=== PATIENT | male | born 1975 | race Caucasian/White ===

== ENCOUNTER 2020-10-24 21:03 | Emergency (ER) | payer OTHER ==
[2020-10-25 02:56] LABS: Absolute Lymphocytes (CBC) 0.7 K/uL (0.7-4.9); Basophils % 0.1 % (0-1.3); Hematocrit 41.9 % (39.6-49.0); Lymphocytes % 5.8 % (15.3-44.8); MPV 7.4 fL (7.6-11.3); Protime INR 1.15; RBC Red Blood Cell Count 5.16 M/uL (4.33-5.43)
[2020-10-25] MEDS ORDERED: NA CHLORIDE 0.9% 250 ML ONE (03:02)
[2020-10-25] MEDS ORDERED: CEFTRIAXONE/SWI 1gm 1 GM/10 ML SYR ONE (03:02)
[2020-10-25] MEDS ORDERED: AZITHROMYCIN 500 MG INJ IVPB ONE (03:02)
[2020-10-25] MEDS ORDERED: METHYLPREDNISOLONE 125 MG INJ ONE (03:02)
[2020-10-25] MEDS ORDERED: ALBUTEROL INHALER 60 PUFF/8 GM IH ONE (03:03)
[2020-10-25 03:11] LABS: ALT/SGPT 70 U/L (12-78); AST/SGOT 60 U/L (15-37); Albumin 3.5 g/dL (3.4-5.0); Alkaline Phosphatase 34 U/L (45-117); BUN Blood Urea Nitrogen 51 mg/dL (7-18); Bicarbonate 23 mmol/L (21-32); Bilirubin Direct 0.2 mg/dL (0-0.2); Bilirubin Total 0.5 mg/dL (0.2-1.0); Glucose Level 106 mg/dL (74-106); Magnesium 2.5 mg/dL (1.8-2.4); NT PRO-BNP 315 pg/mL (<125); Potassium 4.4 mmol/L (3.5-5.1); Protein, Total 7.2 g/dL (6.4-8.2); Sodium Level 137 mmol/L (136-145); Troponin (Emerg Dept Use Only) < 0.02 ng/mL (0.0-0.045)
--- NOTE | 2020-10-25 03:32 | EDPHYS ---
Physician Documentation [facility] Name: Wero Bell Age: 45 yrs Sex: Male : 1975 Arrival Date: 10/24/2020 Time: 21:13 Bed 12 Private MD: ED Physician Manny Murcia HPI: 10/25 01:25 This 45 yrs old Male presents to ER via Ambulatory with complaints of mh7 Productive Cough, WANTS TO GET CHEST XRAY. 01:25 The patient or guardian reports cough, that is intermittent, described as moderate, mh7 with no sputum, flu symptoms, myalgias, Shortness of breath. Onset: The symptoms/episode began/occurred 2 day(s) ago. Severity of symptoms: At their worst the symptoms were moderate, last night, in the emergency department the symptoms are unchanged. Modifying factors: The symptoms are alleviated by nothing, the symptoms are aggravated by exertion. Associated signs and symptoms: Pertinent positives: Pertinent negatives: chest pain, diarrhea, ear ache, fever, nausea, rhinorrhea, sore throat, vomiting. States that he tested positive for Covid 1 week ago.. Historical: - Allergies: 10/24 22:04 No Known Allergies; ca1 - Home Meds: 22:04 None [Active]; ca1 - PMHx: 22:04 Sleep apnea; Hypertensive disorder; ca1 - Immunization history:: Client reports having NOT received the Covid vaccine. - Social history:: Smoking status: Patient denies any tobacco usage or history of. ROS: 10/25 01:25 Constitutional: Negative for fever, chills, and weight loss, Eyes: Negative for injury, mh7 pain, redness, and discharge, ENT: Negative for injury, pain, and discharge, Neck: Negative for injury, pain, and swelling, Cardiovascular: Negative for chest pain, palpitations, and edema, Abdomen/GI: Negative for abdominal pain, nausea, vomiting, diarrhea, and constipation, Back: Negative for injury and pain, : Negative for injury, bleeding, discharge, and swelling, MS/Extremity: Negative for injury and deformity, Skin: Negative for injury, rash, and discoloration, Neuro: Negative for headache, weakness, numbness, tingling, and seizure, Psych: Negative for depression, anxiety, suicide ideation, homicidal ideation, and hallucinations, Allergy/Immunology: Negative for hives, rash, and allergies, Endocrine: Negative for neck swelling, polydipsia, polyuria, polyphagia, and marked weight changes, Hematologic/Lymphatic: Negative for swollen nodes, abnormal bleeding, and unusual bruising. Exam: 01:25 Head/Face: Normocephalic, atraumatic. Eyes: Pupils equal round and reactive to light, mh7 extra-ocular motions intact. Lids and lashes normal. Conjunctiva and sclera are non-icteric and not injected. Cornea within normal limits. Periorbital areas with no swelling, redness, or edema. Neck: Trachea midline, no thyromegaly or masses palpated, and no cervical lymphadenopathy. Supple, full range of motion without nuchal rigidity, or vertebral point tenderness. No Meningismus. Chest/axilla: Normal chest wall appearance and motion. Nontender with no deformity. No lesions are appreciated. Cardiovascular: Regular rate and rhythm with a normal S1 and S2. No gallops, murmurs, or rubs. Normal PMI, no JVD. No pulse deficits. 01:25 Abdomen/GI: Soft, non-tender, with normal bowel sounds. No distension or tympany. No guarding or rebound. No evidence of tenderness throughout. Back: No spinal tenderness. No costovertebral tenderness. Full range of motion. Skin: Warm, dry with normal turgor. Normal color with no rashes, no lesions, and no evidence of cellulitis. MS/ Extremity: Pulses equal, no cyanosis. Neurovascular intact. Full, normal range of motion. Neuro: Awake and alert, GCS 15, oriented to person, place, time, and situation. Cranial nerves II-XII grossly intact. Motor strength 5/5 in all extremities. Sensory grossly intact. Cerebellar exam normal. Normal gait. Psych: Awake, alert, with orientation to person, place and time. Behavior, mood, and affect are within normal limits. 01:25 Constitutional: The patient appears in no acute distress, alert, awake, uncomfortable. 01:25 Respiratory: mild respiratory distress is noted, Respirations: tachypnea, that is mild, Breath sounds: rales, that are mild, are scattered, rhonchi, that are mild, are scattered, Respiratory rate: 22 Vital Signs: 10/24 22:02 BP 127 / 77; Pulse 85; Resp 20; Temp 98.4; Pulse Ox 93% on 3 lpm NC; Weight 102.06 kg ca1 (R); Height 5 ft. 10 in. (177.80 cm) (R); 10/25 04:53 BP 128 / 69; Pulse 89; Resp 22; Temp 98.6; Pulse Ox 96% on 2 lpm NC; Pain 0/10; bs2 10/24 22:02 Body Mass Index 32.28 (102.06 kg, 177.80 cm) ca1 MDM: 03:27 Differential Diagnosis: Obstructed Airway Bronchitis Influenza Upper Respiratory 7 Infection Viral Syndrome Pneumonia. Data reviewed: vital signs, nurses notes, lab test result(s), cardiac enzymes, CBC, electrolytes, EKG, radiologic studies, plain films. Data interpreted: Pulse oximetry: on 2L(s) per nasal canula, is 94 %. Interpretation: acceptable. Counseling: I had a detailed discussion with the patient and/or guardian regarding: the historical points, exam findings, and any diagnostic results supporting the discharge/admit diagnosis, lab results, radiology results, the need for outpatient follow up, to return to the emergency department if symptoms worsen or persist or if there are any questions or concerns that arise at home. Response to treatment: the patient's symptoms have markedly improved after treatment. Refusal of service: The patient/guardian displays adequate decision making capability and despite a detailed discussion of alternatives, benefits, risks, and consequences refuses: Admission to the hospital for further work-up and treatment. ED course: No acute distress, vital signs stable. Patient states that he is currently on oxygen at home. States that he came to ED to get a chest x-ray. States that he feels much better and wants to go home. He declined offer of admission.. 03:32 Patient medically screened. [facility] 10/25 01:37 Order name: Basic Metabolic Panel [facility] 10/25 01:37 Order name: CBC with Diff; Complete Time: 03:15 [facility] 10/25 01:37 Order name: LFT's; Complete Time: 03:15 [facility] 10/25 01:37 Order name: Magnesium; Complete Time: 03:15 [facility] 10/25 01:37 Order name: NT PRO-BNP; Complete Time: 03:15 [facility] 10/25 01:37 Order name: PT-INR; Complete Time: 03:15 [facility] 10/24 22:05 Order name: Chest Pa And Lat (2 Views) XRAY ca1 10/25 01:37 Order name: Troponin (emerg Dept Use Only); Complete Time: 03:15 [facility] 10/25 01:37 Order name: Blood Culture Adult (2) [facility] 10/25 01:37 Order name: Lactate; Complete Time: 03:15 [facility] 10/25 01:37 Order name: Procalcitonin [facility] 10/25 01:37 Order name: Basic Metabolic Panel; Complete Time: 03:15 EDMS 10/25 01:38 Order name: CRP; Complete Time: 03:15 la1 10/25 01:37 Order name: EKG; Complete Time: 01:37 [facility] 10/25 01:37 Order name: Cardiac monitoring; Complete Time: 04:50 [facility] 10/25 01:37 Order name: EKG - Nurse/Tech; Complete Time: 04:50 [facility] 10/25 01:37 Order name: IV Saline Lock; Complete Time: 04:50 [facility] 10/25 01:37 Order name: Labs collected and sent; Complete Time: 04:50 [facility] 10/25 01:37 Order name: O2 Per Protocol; Complete Time: 04:50 [facility] 10/25 01:37 Order name: O2 Sat Monitoring; Complete Time: 04:50 [facility] Administered Medications: 02:45 Drug: SOLU-Medrol (methylPrednisoLONE) 80 mg Route: IVP; Site: right antecubital; bs2 04:50 Follow up: Response: No adverse reaction bs2 02:45 Drug: Rocephin (cefTRIAXone) 1 grams Route: IV; Rate: per protocol; Site: right bs2 antecubital; 04:54 Follow up: IV Status: Completed infusion bs2 02:50 Drug: Zithromax (azithromycin) 500 mg Route: IVPB; Infused Over: 1 hrs; Site: right bs2 antecubital; 04:55 Follow up: IV Status: Completed infusion bs2 02:55 Drug: Albuterol HFA Inhaler 2 puffs Route: Inhalation; bs2 Disposition Summary: 10/25/20 03:32 Discharge Ordered Location: Home [facility] Problem: an ongoing problem [facility] Symptoms: have improved [facility] Condition: Stable [facility] Diagnosis - COVID Pneumonia [facility] Followup: [facility] - With: Private Physician - When: 1 - 2 days - Reason: Worsening of condition, Recheck today's complaints, Continuance of care, Re-evaluation by your physician Followup: [facility] - With: Siva Esquivel MD - When: 1 - 2 days - Reason: Worsening of condition, Recheck today's complaints Discharge Instructions: - Discharge Summary Sheet [facility] - Viral Respiratory Infection, [id number] [facility] - COVID-19 [facility] Forms: - Medication Reconciliation Form [facility] - Thank You Letter [facility] - Antibiotic Education [facility] - Prescription Opioid Use [facility] Prescriptions: - dexamethasone 6 mg Oral tablet - take 1 tablet by ORAL route once daily; 5 tablet; Refills: 0, Product Selection [facility] Permitted - Zithromax Z-Henri 250 mg Oral Tablet - take 1 tablet by ORAL route as directed for 5 days Day 1 - take two (2) tablets [facility] one time. Day 2, 3, 4 , 5 take one (1) tablet once daily.; 6 tablet; Refills: 0, Product Selection Permitted - albuterol sulfate 90 mcg/actuation Inhalation HFA aerosol inhaler - inhale 2 puff by INHALATION route every 6 hours As needed; 1 Inhaler; Refills: 7 0, Product Selection Permitted Signatures: Dispatcher [employer] EDMS Ana Rose RN RN ca1 Manny Murcia MD MD 7 Jane Coats RN RN bs2 Corrections: (The following items were deleted from the chart) 10/24 22:04 22:04 PMHx: None; ca1 ca1
--- NOTE | 2020-10-25 03:32 | ER ---
Nurse's Notes [facility] Name: Wero Bell Age: 45 yrs Sex: Male : 1975 Arrival Date: 10/24/2020 Time: 21:13 Bed 12 Private MD: Diagnosis: COVID Pneumonia Presentation: 10/24 22:02 Chief complaint: Patient states: Covid+ 10/16/2020. Reports productive cough and SOB. ca1 Coronavirus screen: Client denies travel out of the [place] in the last 14 days. Client reports previous positive COVID test result. Date of collection: October 16, 2020 Staff notified of need for isolation. Ebola Screen: Patient negative for fever greater than or equal to 101.5 degrees Fahrenheit, and additional compatible Ebola Virus Disease symptoms Patient denies exposure to infectious person. Patient denies travel to an Ebola-affected area in the 21 days before illness onset. No symptoms or risks identified at this time. Initial Sepsis Screen: Does the patient meet any 2 criteria? No. Patient's initial sepsis screen is negative. Does the patient have a suspected source of infection? No. Patient's initial sepsis screen is negative. Risk Assessment: Do you want to hurt yourself or someone else? Patient reports no desire to harm self or others. Onset of symptoms was October 24, 2020. 22:02 Method Of Arrival: Ambulatory ca1 22:02 Acuity: SORAYA 3 ca1 Triage Assessment: 10/25 01:00 General: Appears in no apparent distress. uncomfortable, well groomed, well developed, bs2 well nourished, Behavior is calm, cooperative, appropriate for age. Respiratory: Reports shortness of breath on exertion Onset: The symptoms/episode began/occurred gradually, the patient has moderate shortness of breath. Historical: - Allergies: 10/24 22:04 No Known Allergies; ca1 - Home Meds: 22:04 None [Active]; ca1 - PMHx: 22:04 Sleep apnea; Hypertensive disorder; ca1 - Immunization history:: Client reports having NOT received the Covid vaccine. - Social history:: Smoking status: Patient denies any tobacco usage or history of. Screenin/06 01:00 Abuse screen: Denies threats or abuse. Denies injuries from another. Nutritional bs2 screening: No deficits noted. Tuberculosis screening: No symptoms or risk factors identified. Fall Risk None identified. Assessment: 01:00 Respiratory: Airway is patent Respiratory effort is even, labored, Breath sounds are bs2 clear bilaterally. Parent/caregiver reports the patient having shortness of breath on exertion pt was prescribed oxygen at home, has his own bottle at bedside. 04:48 General: Appears in no apparent distress. uncomfortable, well groomed, well developed, bs2 well nourished, Behavior is calm, cooperative, appropriate for age. Pain: Denies pain. Cardiovascular: Rhythm is regular. Vital Signs: 10/24 22:02 BP 127 / 77; Pulse 85; Resp 20; Temp 98.4; Pulse Ox 93% on 3 lpm NC; Weight 102.06 kg ca1 (R); Height 5 ft. 10 in. (177.80 cm) (R); 08 04:53 BP 128 / 69; Pulse 89; Resp 22; Temp 98.6; Pulse Ox 96% on 2 lpm NC; Pain 0/10; bs2 10/24 22:02 Body Mass Index 32.28 (102.06 kg, 177.80 cm) ca1 ED Course: 10/24 21:13 Patient arrived in ED. cf2 22:04 Triage completed. ca1 22:04 Arm band placed on right wrist. ca1 22:32 Chest Pa And Lat (2 Views) XRAY In Process Unspecified. EDMS 10/25 00:44 Jane Coats, NORMAN is Primary Nurse. bs2 00:44 Manny Murcia MD is Attending Physician. mh7 01:00 Patient has correct armband on for positive identification. Placed in gown. Bed in low bs2 position. Call light in reach. Side rails up X 1. Pulse ox on. Warm blanket given. 03:30 Siva Esquivel MD is Referral Physician. mh7 04:50 Basic Metabolic Panel Sent. bs2 04:51 No provider procedures requiring assistance completed. bs2 04:51 IV discontinued, intact, bleeding controlled, No redness/swelling at site. bs2 Administered Medications: 02:45 Drug: SOLU-Medrol (methylPrednisoLONE) 80 mg Route: IVP; Site: right antecubital; bs2 04:50 Follow up: Response: No adverse reaction bs2 02:45 Drug: Rocephin (cefTRIAXone) 1 grams Route: IV; Rate: per protocol; Site: right bs2 antecubital; 04:54 Follow up: IV Status: Completed infusion bs2 02:50 Drug: Zithromax (azithromycin) 500 mg Route: IVPB; Infused Over: 1 hrs; Site: right bs2 antecubital; 04:55 Follow up: IV Status: Completed infusion bs2 02:55 Drug: Albuterol HFA Inhaler 2 puffs Route: Inhalation; bs2 Outcome: 03:32 Discharge ordered by MD. london 04:52 Discharged to home ambulatory, with family. bs2 04:52 Condition: improved 04:52 Discharge instructions given to patient, Instructed on discharge instructions, follow up and referral plans. medication usage, Demonstrated understanding of instructions, follow-up care, medications, Prescriptions given X 4. 04:54 Patient left the ED. bs2 Signatures: Dispatcher [employer] EDMS Ana Rose RN RN ca1 Juancho, Carria cf2 Manny Murcia MD MD Jane Sin RN RN bs2 Corrections: (The following items were deleted from the chart) 10/24 22:04 22:04 PMHx: None; ca1 ca1
[2020-10-25 05:04] VITALS: BP 128/69; TEMP 98.6; O2SAT 96
--- NOTE | 2020-10-25 10:49 | EKG ---
Test Date: 2020-10-25 Test Time: 03:13:39 Air Conditioning Equipment Mechanic: ABBY MEASUREMENT RESULTS: Intervals: Rate: 93 AL: 194 QRSD: 94 QT: 344 QTc: 427 Fay: P: 51 AL: 194 QRS: 4 T: 40 INTERPRETIVE STATEMENTS: Normal sinus rhythm Normal ECG No previous ECG available for comparison Electronically Signed On 10-25-20 10:48:03 CDT by Angus Abreu
--- NOTE | 2020-10-25 12:47 | RAD REPORT ---
EXAM DESCRIPTION: RADChest Pa And Lat (2 Views)10/24/2020 10:32 pm COMPARISON: None. CLINICAL HISTORY: COUGH FINDINGS: PA and lateral views of the chest demonstrate(s) a normal cardiomediastinal silhouette. No pneumothorax or pleural effusion. Bilateral subpleural opacities are present. Osseous structures are intact. IMPRESSION: Multifocal pneumonia. This pattern is common with COVID-19. Electronically signed by: Enmanuel Farmer MD 10/25/2020 1:00 AM CDT Due to temporary technical issues with the PACS/Fluency reporting system, reports are being signed by the in house radiologist without review as a courtesy to ensure prompt reporting. The interpreting r adiologist is fully responsible for the content of the report.
== END 2020-10-25 04:54 | disposition home or self-care (01) ==
LOC: ER 21:03
DX: U07.1 COVID-19 (principal); J12.82 Pneumonia due to coronavirus disease 2019; I10 Essential (primary) hypertension
CPT/HCPCS: 96365; 93005; 87040 ×2; 85025; 80048; 36415; 83735; 85610; 80076; 83605; 84484; 84145; 83880; 86140; 71046; 96375; 99284; J0456; J0696; J7050; J2930

== ENCOUNTER 2020-10-26 19:27 | Inpatient (IN) | payer OTHER ==
--- NOTE | 2020-10-26 19:39 | EDPHYS ---
Physician Documentation [facility] Name: Wero Bell Age: 45 yrs Sex: Male : 1975 Arrival Date: 10/26/2020 Time: 19:30 Bed 4 Private MD: ED Physician Yaniv Troy HPI: 10/26 20:23 This 45 yrs old Male presents to ER via EMS with complaints of Breathing pkl Difficulty - COVID+. 20:23 The patient has shortness of breath at rest. Onset: The symptoms/episode began/occurred pkl 3 day(s) ago. Patient was seen in this ER 2 days ago for shortness of breath from Covid pneumonia. Patient has O2 at home and was discharged from ER. Today he felt worse and O2 sats was in the 60's at home. Historical: - Allergies: 20:01 Aspirin; iw - Home Meds: 20:06 lisinopril 40 mg Oral tab 1 tab twice a day [Active]; hydrochlorothiazide 25 mg Oral iw tab 1 tab once daily [Active]; amlodipine 10 mg tab 1 tab once daily [Active]; - PMHx: 20:01 Hypertensive disorder; Sleep Apnea; iw - PSHx: 20:01 None; iw - Immunization history:: Client reports having NOT received the Covid vaccine. - Social history:: Smoking status: Patient denies any tobacco usage or history of. ROS: 20:23 Eyes: Negative for injury, pain, redness, and discharge, ENT: Negative for injury, pkl pain, and discharge, Neck: Negative for injury, pain, and swelling, Cardiovascular: Negative for chest pain, palpitations, and edema. 20:23 Respiratory: Positive for cough, shortness of breath, at rest. 20:23 Abdomen/GI: Negative for abdominal pain, nausea, vomiting, and diarrhea. 20:23 Back: Negative for acute changes. 20:23 : Negative for urinary symptoms. 20:23 MS/extremity: Negative for acute changes. 20:23 Skin: Negative for rash. 20:23 Neuro: Negative for altered mental status, loss of consciousness. Exam: 20:23 Head/Face: Normocephalic, atraumatic. Eyes: Pupils equal round and reactive to light, pkl extra-ocular motions intact. Lids and lashes normal. Conjunctiva and sclera are non-icteric and not injected. Cornea within normal limits. Periorbital areas with no swelling, redness, or edema. ENT: Nares patent. No nasal discharge, no septal abnormalities noted. Tympanic membranes are normal and external auditory canals are clear. Oropharynx with no redness, swelling, or masses, exudates, or evidence of obstruction, uvula midline. Mucous membranes moist. Neck: Trachea midline, no thyromegaly or masses palpated, and no cervical lymphadenopathy. Supple, full range of motion without nuchal rigidity, or vertebral point tenderness. No Meningismus. Chest/axilla: Normal chest wall appearance and motion. Nontender with no deformity. No lesions are appreciated. Cardiovascular: Regular rate and rhythm with a normal S1 and S2. No gallops, murmurs, or rubs. Normal PMI, no JVD. No pulse deficits. 20:23 Respiratory: mild respiratory distress is noted, Respirations: labored breathing, that is mild, Breath sounds: rales, that are moderate, are scattered. 20:23 Abdomen/GI: Bowel sounds: normal, Palpation: abdomen is soft and non-tender, in all quadrants. 20:23 Back: Exam negative for acute changes. 20:23 : Exam negative for acute changes. 20:23 Musculoskeletal/extremity: Exam is negative for acute changes. 20:23 Skin: Exam negative for rash. 20:23 Neuro: Orientation: is normal, Mentation: is normal, Cranial nerves: grossly normal, Motor: is normal. Vital Signs: 19:51 Pulse Ox 94% on Non-rebreather mask; Weight 99.79 kg; iw 19:58 BP 142 / 59; Pulse 91; Resp 24 S; Temp 98.9; Pulse Ox 88% on Non-rebreather mask; iw Weight 102.06 kg; Height 5 ft. 10 in. (177.80 cm); Pain 0/10; 19:58 Body Mass Index 32.28 (102.06 kg, 177.80 cm) iw MDM: 19:31 Patient medically screened. pkl 20:23 Data reviewed: vital signs, nurses notes, lab test result(s), radiologic studies, plain pkl films. ED course: Talked to Elmer Graves ( CHARLEY ) Admit to Dr. Barton. 10/26 19:32 Order name: CBC with Diff; Complete Time: 20:34 la1 10/26 19:32 Order name: CMP; Complete Time: 22:27 la1 10/26 19:32 Order name: Ferritin; Complete Time: 22:27 la1 10/26 19:32 Order name: DD; Complete Time: 20:34 la1 10/26 19:32 Order name: CRP; Complete Time: 22:27 la1 10/26 19:32 Order name: Procalcitonin; Complete Time: 20:34 la1 10/26 20:31 Order name: Manual Differential; Complete Time: 20:34 EDMS 10/26 22:56 Order name: Urinalysis; Complete Time: 06:35 EDMS 08 06:00 Order name: CBC with Automated Diff; Complete Time: 06:35 EDMS 08 06:14 Order name: Comprehensive Metabolic Panel; Complete Time: 06:35 EDMS 08 06:14 Order name: Lipid Profile; Complete Time: 06:35 EDMS 08 06:14 Order name: C-Reactive Protein; Complete Time: 06:35 EDMS 08 06:14 Order name: T4 Free; Complete Time: 06:35 EDMS 08 06:14 Order name: Magnesium; Complete Time: 06:35 EDMS 08 06:14 Order name: Thyroid Stimulating Hormone; Complete Time: 06:35 EDMS 08 06:14 Order name: Ferritin; Complete Time: 06:35 EDMS 08 06:36 Order name: D-Dimer; Complete Time: 06:35 EDMS 08 14:26 Order name: ABG Arterial Blood Gas; Complete Time: 06:35 EDMS 08 05:04 Order name: CBC with Automated Diff; Complete Time: 06:35 EDMS 08 05:11 Order name: D-Dimer; Complete Time: 06:35 EDMS 08 05:25 Order name: Comprehensive Metabolic Panel; Complete Time: 06:35 EDMS 08/ 05:25 Order name: Liver (Hepatic) Function; Complete Time: 06:35 EDMS 08 05:25 Order name: C-Reactive Protein; Complete Time: 06:35 EDMS 08 05:25 Order name: Magnesium; Complete Time: 06:35 EDMS 08 05:25 Order name: Ferritin; Complete Time: 06:35 EDMS 08 16:46 Order name: Protime (+INR); Complete Time: 19:23 EDMS 10/28 16:46 Order name: PTT, Activated Partial Thromb; Complete Time: 19:23 EDMS 10/28 16:46 Order name: Fibrinogen; Complete Time: 19:23 EDMS 10/28 18:11 Order name: D-Dimer; Complete Time: 19:23 EDMS 10/28 18:13 Order name: C-Reactive Protein; Complete Time: 19:23 EDMS 10/26 19:32 Order name: Chest Single View XRAY; Complete Time: 21:50 la1 10/26 19:37 Order name: BIPAP la1 10/27 13:59 Order name: RAD; Complete Time: 06:35 EDMS 10/28 08:15 Order name: RAD; Complete Time: 13:53 EDMS 10/28 18:13 Order name: Ferritin; Complete Time: 19:23 EDMS 10/28 19:41 Order name: ABG Arterial Blood Gas EDMS 10/28 20:57 Order name: PT-INR ea 10/28 20:57 Order name: Ptt, Activated ea 10/28 22:04 Order name: Protime (+INR) EDMS 10/28 22:04 Order name: PTT, Activated Partial Thromb EDMS 10/28 23:21 Order name: CORONAVIRUS EDMS 10/28 23:45 Order name: Gastric Occult Blood EDMS 10/28 23:47 Order name: CBC with Automated Diff EDMS 10/29 00:26 Order name: Manual Differential EDMS 10/29 00:42 Order name: Comprehensive Metabolic Panel EDMS 10/29 01:34 Order name: SARS-COV-2 RT PCR EDMS 10/29 02:26 Order name: Ptt, Activated ea 10/29 02:44 Order name: PTT, Activated Partial Thromb EDMS 10/29 03:02 Order name: CBC with Automated Diff EDMS 10/29 03:22 Order name: Glucose, Ancillary Testing EDMS 10/29 03:32 Order name: Comprehensive Metabolic Panel EDMS 10/29 03:32 Order name: Liver (Hepatic) Function EDMS 10/29 03:32 Order name: C-Reactive Protein EDMS 10/29 03:32 Order name: Magnesium EDMS 10/29 03:32 Order name: Ferritin EDMS 10/29 03:34 Order name: D-Dimer EDMS 10/29 05:56 Order name: Glucose, Ancillary Testing EDNM 10/29 06:16 Order name: ABG Arterial Blood Gas EDNM 10/29 06:23 Order name: Glucose Level EDNM 10/29 08:42 Order name: Glucose, Ancillary Testing EDMS 10/29 09:42 Order name: Glucose, Ancillary Testing EDNM 10/29 11:22 Order name: Glucose, Ancillary Testing EDNM 10/26 19:32 Order name: IV; Complete Time: 19:51 la1 10/28 13:53 Order name: XRAY Chest (1 view) 8 10/28 14:36 Order name: RAD; Complete Time: 19:23 EDMS 10/29 11:12 Order name: RAD EDNM Administered Medications: 19:51 Drug: SOLU-Medrol (methylPrednisoLONE) 125 mg Route: IVP; Site: right antecubital; iw 20:00 Drug: Lovenox (enoxaparin) 1 mg/kg Route: Sub-Q; Site: left lower abdomen; iw Disposition Summary: 10/26/20 19:39 Hospitalization Ordered Hospitalization Status: Inpatient Admission pkl Provider: Eleuterio Barton pkl Condition: Fair pkl Problem: new pkl Symptoms: are unchanged pkl Bed/Room Type: Standard pkl Location: [facility] ER HOLD(10/27/20 00:27) cg Room Assignment: ERHOLD-(10/27/20 00:27) cg Diagnosis - Respiratory distress. Hypoxia. Covid pneumonia pkl Forms: - Medication Reconciliation Form pkl - SBAR form pkl Signatures: Dispatcher [employer] [facility] Alhaji Nash MD MD cha Lam, Pin, MD MD pkl Shadia Peng, NORMAN RN Maximino Mane PA PA [id number] Elmer Graves, LUNCH COOK-C LUNCH COOK-Cla1 Mary Weber, RN RN cg Corrections: (The following items were deleted from the chart) 19:38 19:32 Misc. Order ordered. la1 la1 10/27 00:27 10/26 19:39 Telemetry/MedSurg (Inpatient) pkl cg 10/27 00:27 10/26 19:39 pkl cg
[2020-10-26] MEDS ORDERED: METHYLPREDNISOLONE 125 MG INJ ONE (20:02)
[2020-10-26] MEDS ORDERED: ENOXAPARIN 100 MG/ML SYR SQ ONE (20:02)
[2020-10-26 20:06] LABS: Absolute Lymphocytes (CBC) 0.3 K/uL (0.7-4.9); Basophils % 0.4 % (0-1.3); Hematocrit 42.2 % (39.6-49.0); Lymphocytes % 1.9 % (15.3-44.8); MPV 7.5 fL (7.6-11.3); RBC Red Blood Cell Count 5.12 M/uL (4.33-5.43)
[2020-10-26 20:31] LABS: Blood Morphology Comment NOT SEEN (NOT SEEN); Platelet Estimate ADEQ
--- NOTE | 2020-10-26 20:38 | RAD REPORT ---
EXAM DESCRIPTION: RAD - Chest Single View - 10/26/2020 8:32 pm CLINICAL HISTORY: SOB COMPARISON: Chest Pa And Lat (2 Views) dated 10/24/2020 FINDINGS: Worsening patchy bilateral airspace disease. Cardiomegaly.No acute osseous abnormality. No significant pleural effusions or pneumothorax. IMPRESSION: Worsening, severe bilateral airspace disease concerning for multifocal pneumonia includi ng Covid-19.
[2020-10-26 21:47] LABS: Albumin 3.2 g/dL (3.4-5.0); Bilirubin Total 0.5 mg/dL (0.2-1.0); C-Reactive Protein 36.3 mg/L (<3.00); Potassium 4.4 mmol/L (3.5-5.1); Protein, Total 7.1 g/dL (6.4-8.2)
[2020-10-26] MEDS ORDERED: BENZONATATE 100 MG CAP PO PRN (22:12)
[2020-10-26] MEDS ORDERED: ONDANSETRON 4 MG/2 ML VIAL IV PRN (22:12)
[2020-10-26 22:19] LABS: Ferritin 1511.3 ng/mL (26-388)
[2020-10-26 22:28] LABS: Urine Appearance CLEAR (Clear); Urine Bilirubin NEGATIVE (Negative); Urine Blood NEGATIVE (Negative); Urine Color YELLOW (Yellow); Urine Glucose NEGATIVE (Negative); Urine Protein NEGATIVE (Negative); Urine Urobilinogen 0.2 mg/dL (0.2-1.0)
[2020-10-26] MEDS: ASCORBIC ACID 500 MG TABLET PO SCH (22:38)
[2020-10-26 22:55] LABS: Urine Microscopic Reflex NO UMIC
[2020-10-26] MEDS ORDERED: ASCORBIC ACID 500 MG TABLET ONE (22:59)
--- NOTE | 2020-10-26 23:05 | P.HP ---
Certification for Inpatient Patient admitted to: Inpatient With expected LOS: >2 Midnights Patient will require the following post-hospital care: None Practitioner: I am a practitioner with admitting privileges, knowledge of patient current condition, hospital course, and medical plan of care. Services: Services provided to patient in accordance with Admission requirements found in Title 42 Section 412.3 of the Code of Federal Regulations Patient History Date of Service: 10/26/20 Reason for admission: COVID-19 pneumonia History of Present Illness: 45-year-old male with history of hypertension presents the emergency department for shortness of breath. Patient reports testing positive for COVID- 19 around October 17 with increasing shortness of breath since then. Patient has been on home oxygen prescribed by his doctor for the last few days, patient was seen in the emergency department here a couple of days ago at that time patient was saturating around 93 to 94% on 2 L per nasal cannula which he had prescribed at home, patient was offered admission but declined at that time, patient was monitoring his oxygen level with pulse oximetry at home and found to be saturating the 60s today, EMS transported patient to the emergency department and placed on a nonrebreather, on nonrebreather patient saturating around 88%. Patient was placed on BiPAP currently at 65% FiO2 saturating around 94%. Additional work-up labs significant for white blood cell count 18.3 procalcitonin negative D-dimer 1665 creatinine 1.63 GFR 46 BUN 62 glucose 140 ferritin 1511.3 C-reactive protein 36.3. ED provider wishes to admit for further evaluation and management. Allergies No Known Allergies Allergy (Unverified 10/26/20 21:47) - Past Medical/Surgical History -: Hypertension -: None Psychosocial/ Personal History: From out of town, currently here for work, living with . - Family History Family History: Reviewed- Non-Contributory - Social History Smoking Status: Never smoker Alcohol use: No CD- Drugs: No Caffeine use: Yes Place of Residence: Home Review of Systems 10-point ROS is otherwise unremarkable General: Weakness, Malaise Respiratory: Cough, Dry, Shortness of Breath, SOB with Excertion Physical Examination - Physical Exam General: Alert, In no apparent distress, Oriented x3 HEENT: Atraumatic, PERRLA, Mucous membr. moist/pink, EOMI, Sclerae nonicteric Neck: Supple, 2+ carotid pulse no bruit, No LAD, Without JVD or thyroid abnormality Respiratory: Diminished, Other (Tachypnea, dyspnea) Cardiovascular: Regular rate/rhythm, Normal S1 S2 Gastrointestinal: Normal bowel sounds, No tenderness Musculoskeletal: No tenderness Integumentary: No rashes Neurological: Normal gait, Normal speech, Normal strength at 5/5 x4 extr, Normal tone, Normal affect Lymphatics: No axilla or inguinal lymphadenopathy - Studies Laboratory Data (last 24 hrs) 10/26/20 19:45: Sodium 138, Potassium 4.4, BUN 62 H, Creatinine 1.63 H, Glucose 140 H, Total Bilirubin 0.5, AST 57 H, ALT 79 H, Alkaline Phosphatase 37 L 10/26/20 19:45: WBC 18.30 H D, Hgb 14.0, Hct 42.2, Plt Count 323 Assessment and Plan - Plan Assessment: Acute hypoxic respiratory failure secondary to COVID-19 pneumonia SAWYER Hypertension Plan: Acute hypoxic respiratory failure secondary to COVID-19 pneumonia: Patient with rapid worsening over the course of the last 2 days, chest x-ray significantly worse. Continue with IV steroids, oral supplements, pulmonology consulted continue with full dose anticoagulation with Xarelto given Lovenox in the emergency department. Currently on BiPAP FiO2 65%. SAWYER: Continue with IV fluids overnight, recheck chemistry with morning labs, will avoid too much fluids. Hypertension: Continue medications, adjust as necessary. DVT PPX: Xarelto Code status: Full Discharge Plan: Home Plan to discharge in: Greater than 2 days - Advance Directives Does patient have a Living Will: No Does patient have a Durable POA for Healthcare: No - Code Status/Comfort Care Code Status Assessed: Yes (Full code) Critical Care: No Time Spent Managing Pts Care (In Minutes): 55
[2020-10-26] MEDS ORDERED: NA CHLORIDE 0.9% 1,000 ML IV SCH (23:45)
[2020-10-26] MEDS ORDERED: NA CHLORIDE 0.9% 1,000 ML ONE (23:50)
[2020-10-27 05:50] LABS: Absolute Lymphocytes (CBC) 0.4 K/uL (0.7-4.9); Basophils % 0.1 % (0-1.3); Hematocrit 42.1 % (39.6-49.0); Lymphocytes % 2.3 % (15.3-44.8); MPV 7.4 fL (7.6-11.3); RBC Red Blood Cell Count 5.14 M/uL (4.33-5.43)
[2020-10-27 06:07] LABS: Albumin 2.8 g/dL (3.4-5.0); Bilirubin Total 0.4 mg/dL (0.2-1.0); C-Reactive Protein 42.4 mg/L (<3.00); Ferritin 1526.1 ng/mL (26-388); Magnesium 3.2 mg/dL (1.8-2.4); Potassium 4.6 mmol/L (3.5-5.1); Protein, Total 6.6 g/dL (6.4-8.2); Thyroid Stimulating Hormone 0.068 uIU/mL (0.360-3.740)
[2020-10-27] MEDS ORDERED: METHYLPREDNISOLONE 40 MG INJ IV SCH (09:00)
[2020-10-27] MEDS: VITAMIN D 1000 UNIT TAB PO SCH (09:00)
[2020-10-27] MEDS: THIAMINE HCL 100 MG TABLET PO SCH (09:00)
[2020-10-27] MEDS: METHYLPREDNISOLONE 125 MG INJ IV SCH ×3 (09:00→21:00)
[2020-10-27] MEDS: IVERMECTIN 3 MG TABLET PO SCH (09:00)
[2020-10-27] MEDS: ZINC SULFATE 220 MG CAP PO SCH (09:00)
[2020-10-27] MEDS: ASCORBIC ACID 500 MG TABLET PO SCH ×4 (09:00→21:00)
[2020-10-27] MEDS ORDERED: REMDESIVIR (EUA) 200 MG in NA CHLORIDE 0.9% 250 ML IV ONE (10:00)
--- NOTE | 2020-10-27 10:52 | P.PN ---
Subjective Date of Service: 10/27/20 Chief Complaint: COVID-19 pneumonia Subjective: Improving Breathing feels better. C/o mouth and throat feeling dry. Denies any n/v. Last BM 2 days ago. <Jeanette Serrato - Last Filed: 10/27/20 17:08> Date of Service: 10/27/20 <Timi De Souza - Last Filed: 10/27/20 22:51> Review of Systems 10-point ROS is otherwise unremarkable <Timi De Souza - Last Filed: 10/27/20 22:51> Physical Examination - Vital Signs Temperature: 98.4 F Blood Pressure: 114/69 Pulse: 78 Respirations: 23 Pulse Ox (%): 89 - Studies Laboratory Data (last 24 hrs) 10/26/20 19:45: Sodium 138, Potassium 4.4, BUN 62 H, Creatinine 1.63 H, Glucose 140 H, Total Bilirubin 0.5, AST 57 H, ALT 79 H, Alkaline Phosphatase 37 L 10/26/20 19:45: WBC 18.30 H D, Hgb 14.0, Hct 42.2, Plt Count 323 <Jeanette Serrato - Last Filed: 10/27/20 17:08> Assessment And Plan Physician Review Additional Text: Physical exam: Gen: AAx3, NAD, cooperative HEENT: hearing aids present bilaterally. clear conjunctiva pulm: labored respirations, tachypneic. 91-93% on bipap CV: regular rate Abd: mildly tight and distended. no tenderness MSK: no swelling Neuro: moving all extremities bilaterally Assessment: Acute hypoxic respiratory failure secondary to COVID-19 pneumonia SAWYER Hypertension Plan: Acute hypoxic respiratory failure secondary to COVID-19 pneumonia: -Patient with rapid worsening over the course of the last 2 days, chest x-ray significantly worse. -Continue with IV steroids, oral supplements, oxygen supplementation. -Pulmonology consulted. -Start remdesivir. -Will consider starting bariticib if worsening inflammatory markers. Pt does not qualify at this time. SAWYER: -Continue with light IVF hydration. Continue to monitor renal function. Hypertension: -Continue medications, adjust as necessary. DVT PPX: Xarelto Code status: Full Discharge Plan: Home Plan to discharge in: Greater than 2 days Time Spent Managing PTS Care (In Minutes): 35 <Jeanette Serrato - Last Filed: 10/27/20 17:08> Physician Review Additional Text: Patient seen and examined with Jeaentte Serrato. Plan of care discussed and agree as noted above. CXR unchanged. Patient appears anxious, reports h/o anxiety, years ago took xanax ativan given - improved tachypnea SpO2 drops quickly with minimal exertion / after seconds off BIPAP mask. minimize taking mask off advised not to eat today if no improvement, dobhoff tomorrow discussed with , updated on clinical status and answered all questions <Timi De Souza - Last Filed: 10/27/20 22:51>
[2020-10-27] MEDS ORDERED: VITAMIN D 1000 UNIT TAB ONE (11:03)
[2020-10-27] MEDS ORDERED: METHYLPREDNISOLONE 125 MG INJ ONE ×2 (11:03→18:00)
[2020-10-27] MEDS ORDERED: ZINC SULFATE 220 MG CAP ONE (11:03)
[2020-10-27] MEDS ORDERED: ASCORBIC ACID 500 MG TABLET ONE ×3 (11:03→21:27)
[2020-10-27] MEDS ORDERED: THIAMINE HCL 100 MG TABLET ONE (11:03)
--- NOTE | 2020-10-27 12:15 | P.CNS ---
Date of Consult: 10/27/20 (Pt agreed to TV) Reason for Consult: Resp failure from COVID Chief Complaint: COVID-19 pneumonia History of Present Illness: AGe 45 AW resp failure from COVID/ On BIPAP/ On BIPAP Allergies aspirin Allergy (Verified 10/26/20 23:16) unknown Home Medications: Amlodipine [Norvasc] 10 mg PO DAILY 10/26/20 Lisinopril [Zestril] 1 tab PO BID 10/26/20 hydroCHLOROthiazide [Hydrochlorothiazide] 25 mg PO DAILY 10/26/20 - Past Medical/Surgical History Diabetic: No -: Hypertension -: sleep apnea -: None Psychosocial/ Personal History: From out of town, currently here for work, living with . - Social History Alcohol use: No CD- Drugs: No Caffeine use: No Place of Residence: Home Review of Systems Respiratory: Shortness of Breath Physical Examination Temp Pulse Resp BP Pulse Ox 98.4 F 78 23 H 114/69 89 L 10/27/20 11:07 10/27/20 11:07 10/27/20 11:07 10/27/20 11:07 10/27/20 11:07 General: Alert, In no apparent distress, Cooperative, Mild distress Laboratory Data (last 24 hrs) 10/26/20 19:45: Sodium 138, Potassium 4.4, BUN 62 H, Creatinine 1.63 H, Glucose 140 H, Total Bilirubin 0.5, AST 57 H, ALT 79 H, Alkaline Phosphatase 37 L 10/26/20 19:45: WBC 18.30 H D, Hgb 14.0, Hct 42.2, Plt Count 323 - Problems (1) Pneumonia due to COVID-19 virus Current Visit: Yes Status: Acute Plan: Pt is 45 yrs age AW COVID penumonia. OnBIPA/ CXYR and LABs reviewed/ CW present Tx, Daily CRP Does not qulaify for Barctinib
[2020-10-27] MEDS ORDERED: MORPHINE 2 MG/ML SYR IV PRN (12:46)
--- NOTE | 2020-10-27 13:58 | RAD REPORT ---
EXAM DESCRIPTION: RAD - Chest Single View - 10/27/2020 12:45 pm CLINICAL HISTORY: shortness of breath COMPARISON: Chest Single View dated 10/26/2020; Chest Pa And Lat (2 Views) dated 10/24/2020 FINDINGS: Similar severe bilateral airspace opacities. Similar mild cardiomegalyNo acute osseous abn ormality. No significant pleural effusions or pneumothorax. IMPRESSION: Unchanged widespread bilateral airspace disease concerning for multifocal pneumonia.
[2020-10-27] MEDS: LORazepam 2 MG/ML VIAL IV PRN (14:00)
[2020-10-27 14:24] LABS: Arterial Blood Carboxyhemoglob 0.8 % (0-1.5); Blood O2 Saturation 89.5 % (92-98.5)
[2020-10-27] MEDS ORDERED: REMDESIVIR (EUA) 100 MG in NA CHLORIDE 0.9% 250 ML IV SCH (15:00)
[2020-10-27] MEDS ORDERED: RIVAROXABAN 10 MG TABLET PO SCH (17:00)
[2020-10-27] MEDS ORDERED: RIVAROXABAN 20 MG TABLET PO SCH (17:00)
[2020-10-27] MEDS: NA CHLORIDE 0.9% 1,000 ML IV SCH (18:00)
[2020-10-27] MEDS ORDERED: NA CHLORIDE 0.9% 1,000 ML ONE (21:27)
[2020-10-27] MEDS ORDERED: METHYLPREDNISOLONE 40 MG INJ ONE (21:27)
[2020-10-28 05:02] LABS: Absolute Lymphocytes (CBC) 0.2 K/uL (0.7-4.9); Hematocrit 42.2 % (39.6-49.0); Lymphocytes % 1.2 % (15.3-44.8); MPV 7.5 fL (7.6-11.3); RBC Red Blood Cell Count 5.08 M/uL (4.33-5.43)
[2020-10-28 05:12] LABS: Albumin 2.6 g/dL (3.4-5.0); Bilirubin Direct 0.1 mg/dL (0-0.2); Bilirubin Total 0.4 mg/dL (0.2-1.0); C-Reactive Protein 64.5 mg/L (<3.00); Ferritin 1714.4 ng/mL (26-388); Magnesium 3.1 mg/dL (1.8-2.4); Potassium 4.8 mmol/L (3.5-5.1); Protein, Total 6.4 g/dL (6.4-8.2)
--- NOTE | 2020-10-28 06:21 | P.PN ---
Subjective Date of Service: 10/28/20 Chief Complaint: COVID-19 pneumonia Subjective: Worsening (he feels worse than yesterday. states he had a rough night. feels very anxious) <Jeanette Serrato - Last Filed: 10/28/20 17:03> Date of Service: 10/28/20 <De SouzaTimi - Last Filed: 10/28/20 21:36> Review of Systems 10-point ROS is otherwise unremarkable <Jeanette Serrato - Last Filed: 10/28/20 17:03> Physical Examination - Vital Signs Temperature: 97.9 F Blood Pressure: 133/58 Pulse: 81 Respirations: 34 Pulse Ox (%): 89 <Jeanette Serrato - Last Filed: 10/28/20 17:03> Assessment And Plan - Plan Physical exam: Gen: AOx3, anxious appearing HEENT: hearing aids present bilaterally. clear conjunctiva, EOMI pulm: labored respirations, tachypneic, increased work of breathing, 85-89% on bipap CV: regular rate Abd: mildly distended. no tenderness MSK: no swelling Neuro: moving all extremities bilaterally Assessment: Acute hypoxic respiratory failure secondary to COVID-19 pneumonia SAWYER Hypertension Plan: Acute hypoxic respiratory failure secondary to COVID-19 pneumonia: -CXR today shows mild improvement but patient appears clinically worse -Pt appears anxious, reports h/o anxiety, years ago took xanax -Will trial increased dosage of ativan and morphine to help tachypnea. if no improvement, then possible intubation today -SpO2 drops quickly with minimal exertion / after seconds off BIPAP mask. -Minimize taking mask off -Flores cath and dobhoff today to minimize movement -Continue with IV steroids, oral supplements, oxygen supplementation. -Pulmonology consulted. -Start remdesivir. -Will consider starting bariticib if worsening inflammatory markers. Pt does not qualify at this time. SAWYER: -Continue with light IVF hydration. Continue to monitor renal function. Hypertension: -Continue medications, adjust as necessary. DVT PPX: Xarelto Code status: Programmer Or Analyst Spent Managing PTS Care (In Minutes): 35 <Jeanette Serrato - Last Filed: 10/28/20 17:03> - Plan Patient seen and examined with Jeanette Serrato. Plan of care discussed and agree as noted above. Patient had initial improvement this morning, breathing more comfortable after ativan given for anxiety. CXR this AM with improvement. inflammatory markers / d dimer significantly worsened Patient quickly desaturated with minimal movement. Again, breathing very tac hypneic / shallow unable to slow his breathing, began to become more hypoxic quickly dropping to 50% necessary staff were paged to room, patient underwent intubation by ED PA Patient remained with SpO2 in 60s% for several hours after intubation/ventilation until finally getting up to the 70s%. Patient became more hypotensive as a result of the sedation, responded partly to IVF suspect acute worsening of COVID-19 pneumonia despite treatment, possible new/worsening PE - but he was on xarelto. updated. To visit patient tomorrow late afternoon. States she is not vaccinated and has not had COVID0-19 <Timi De Souza - Last Filed: 10/28/20 21:36>
[2020-10-28] MEDS: LORazepam 2 MG/ML VIAL IV PRN (06:27)
[2020-10-28] MEDS ORDERED: LORazepam 2 MG/ML VIAL ONE ×2 (06:44→12:45)
[2020-10-28] MEDS ORDERED: LORazepam 2 MG/ML VIAL IV ONE (07:51)
[2020-10-28] MEDS: METHYLPREDNISOLONE 125 MG INJ IV SCH ×2 (08:07→14:00)
[2020-10-28] MEDS ORDERED: METHYLPREDNISOLONE 125 MG INJ ONE ×2 (08:07→20:18)
[2020-10-28] MEDS ORDERED: ASCORBIC ACID 500 MG TABLET ONE (08:08)
[2020-10-28] MEDS ORDERED: ZINC SULFATE 220 MG CAP ONE (08:08)
[2020-10-28] MEDS ORDERED: VITAMIN D 1000 UNIT TAB ONE (08:08)
[2020-10-28] MEDS ORDERED: THIAMINE HCL 100 MG TABLET ONE (08:08)
--- NOTE | 2020-10-28 08:15 | RAD REPORT ---
EXAM DESCRIPTION: Dion Single View10/28/2020 7:31 am CLINICAL HISTORY: Hypoxia COMPARISON: October 27, 2020 FINDINGS: Mild improvement in the bilateral pulmonary opacities. Heart remains enlarged IMPRESSION: Mild improvement in the bilateral pulmonary opacities probably pneumonia
[2020-10-28] MEDS ORDERED: BARICITINIB 2 MG TABLET PO SCH (09:00)
[2020-10-28] MEDS: ZINC SULFATE 220 MG CAP PO SCH (09:00)
[2020-10-28] MEDS: THIAMINE HCL 100 MG TABLET PO SCH (09:00)
[2020-10-28] MEDS: ASCORBIC ACID 500 MG TABLET PO SCH ×3 (09:00→16:16)
[2020-10-28] MEDS ORDERED: REMDESIVIR (EUA) 100 MG in NA CHLORIDE 0.9% 250 ML IV SCH ×4 (09:00)
[2020-10-28] MEDS: VITAMIN D 1000 UNIT TAB PO SCH (09:00)
[2020-10-28] MEDS ORDERED: LORazepam 2 MG/ML VIAL IV PRN (09:18)
[2020-10-28] MEDS ORDERED: NA CHLORIDE 0.9% 1,000 ML ONE ×3 (11:09→21:35)
[2020-10-28] MEDS ORDERED: METHYLPREDNISOLONE 40 MG INJ ONE (11:09)
[2020-10-28] MEDS ORDERED: MORPHINE 2 MG/ML SYR IV ONE (11:21)
[2020-10-28] MEDS: NA CHLORIDE 0.9% 1,000 ML IV SCH ×2 (11:23→20:40)
[2020-10-28] MEDS ORDERED: MORPHINE 2 MG/ML SYR ONE (11:29)
[2020-10-28 11:35] VITALS: BMI 32.1
[2020-10-28] MEDS ORDERED: ONDANSETRON 4 MG/2 ML VIAL ONE (12:46)
[2020-10-28] MEDS ORDERED: MIDAZOLAM HCL 2 MG/2 ML INJ IV ONE (13:02)
[2020-10-28] MEDS ORDERED: ETOMIDATE 20 MG/10 ML VIAL IV ONE (13:04)
[2020-10-28] MEDS ORDERED: SUCCINYLCHOLINE 20 MG/ML (10 ML) IV ONE (13:05)
[2020-10-28] MEDS ORDERED: propofoL 200 MG/20 ML VIAL IV ONE (13:06)
[2020-10-28] MEDS: propofoL 1,000 MG/100 ML VIAL IV PRN ×2 (13:10→19:15)
[2020-10-28] MEDS ORDERED: CISATRACURIUM 40 MG in NS 100 ML IV PRN (13:14)
[2020-10-28] MEDS ORDERED: MIDAZOLAM HCL 2 MG/2 ML INJ ONE ×2 (13:20→13:37)
[2020-10-28] MEDS ORDERED: FENTANYL CITR 100 MCG/2 ML ONE ×2 (13:21→20:48)
[2020-10-28] MEDS ORDERED: propofoL 1,000 MG/100 ML VIAL IV ONE ×4 (13:24→22:33)
--- NOTE | 2020-10-28 14:35 | RAD REPORT ---
EXAM DESCRIPTION: RAD - Chest Single View - 10/28/2020 2:13 pm CLINICAL HISTORY: post intubation COMPARISON: Chest Single View dated 10/28/2020; Chest Single View dated 10/27/2020; Chest Single View da eligio 10/26/2020; Chest Pa And Lat (2 Views) dated 10/24/2020 FINDINGS: Interval placement of an endotracheal tube with tip approximately 4 centimeters above the juan manuel. Worsened bilateral airspace disease which is widespread in severe peer The heart size is with in normal limits.No acute osseous abnormality. No significant pleural effusions or pneumothorax. NG t ube below the level diaphragm in the stomach. IMPRESSION: Endotracheal tube in satisfactory position. Enteric tube is also in place. Worsened wide spread bilateral airspace disease concerning for multifocal pneumonia.
[2020-10-28] MEDS ORDERED: NA CHLORIDE 0.9% 500 ML IV ONE (14:40)
--- NOTE | 2020-10-28 14:49 | P.PN ---
Subjective Date of Service: 10/28/20 Chief Complaint: COVID-19 pneumonia Subjective: Worsening (Conditon worsened now on vent) Review of Systems is unable to be obtained Physical Examination - Vital Signs Temperature: 99.1 F Blood Pressure: 78/54 Pulse: 116 Respirations: 25 Pulse Ox (%): 67 - Physical Exam General: Unresponsive Assessment & Plan - Problems (Diagnosis) (1) Pneumonia due to COVID-19 virus Current Visit: Yes Status: Acute Plan: Resp failure worse/ Intubated/ Try Actemera, increase solumedrol to 1 g Q8, Full anticoagualtion wiht lovenox, in shock very hypoxic. prog very poor/ albs reviewed/ Dw / Ap/ Vu approved
[2020-10-28] MEDS: METHYLPRED NA SUC 1,000 MG in NA CHLORIDE 0.9% 100 ML IV SCH ×2 (15:00→23:00)
[2020-10-28] MEDS: CISATRACURIUM BESYLATE 100 MG in NA CHLORIDE 0.9% 200 ML IV PRN (15:35)
[2020-10-28] MEDS ORDERED: HEPARIN 10,000 UNIT/10 ML VIAL IV SCH (16:00)
[2020-10-28] MEDS ORDERED: HEPARIN 5000 UNIT/ML 1 ML VIAL IV SCH (16:00)
[2020-10-28] MEDS ORDERED: HEPARIN 10,000 UNIT/10 ML VIAL IV PRN (16:00)
[2020-10-28] MEDS ORDERED: TOCILIZUMAB 800 MG in NA CHLORIDE 0.9% 60 ML IV ONE (16:00)
[2020-10-28] MEDS ORDERED: HEPARIN 5000 UNIT/ML 1 ML VIAL IV PRN (16:00)
[2020-10-28 16:15] VITALS: O2SAT 77
[2020-10-28 16:32] LABS: Protime INR 1.78
[2020-10-28] MEDS ORDERED: HEPARIN 5000 UNIT/ML 1 ML VIAL ONE (16:34)
[2020-10-28] MEDS ORDERED: HEPARIN/D5W 25,000 UNIT/500 ML BAG IV ONE (16:34)
[2020-10-28] MEDS: HEPARIN/D5W 25,000 UNIT/500 ML BAG IV PRN ×2 (17:05→22:27)
[2020-10-28] MEDS: NOREPINEPHRINE 4 MG in D5W 250 ML IV PRN (17:35)
[2020-10-28] MEDS ORDERED: NOREPINEPHRINE 4mg/D5W 250mL 4 MG/250 ML BAG IV ONE (17:49)
[2020-10-28 18:12] LABS: C-Reactive Protein 77.8 mg/L (<3.00); Ferritin 3169.7 ng/mL (26-388)
[2020-10-28 19:39] LABS: Arterial Blood Carboxyhemoglob 1.2 % (0-1.5); Blood Gas Oxyhemoglobin 73.9 % (94-97); Blood O2 Saturation 75.8 % (92-98.5)
[2020-10-28] MEDS ORDERED: NA CHLORIDE 0.9% 100 ML ONE (20:18)
[2020-10-28 22:01] LABS: Protime INR 1.91
[2020-10-28 23:38] LABS: Absolute Lymphocytes (CBC) 0.7 K/uL (0.7-4.9); Basophils % 0.4 % (0-1.3); Hematocrit 45.3 % (39.6-49.0); Lymphocytes % 1.9 % (15.3-44.8); MPV 7.5 fL (7.6-11.3); RBC Red Blood Cell Count 5.18 M/uL (4.33-5.43)
[2020-10-28] MEDS ORDERED: ACETAMINOPHEN 650MG/RECT SUPP PR ONE (23:56)
[2020-10-29] MEDS ORDERED: FENTANYL CITR 100 MCG/2 ML ONE (00:03)
[2020-10-29] MEDS ORDERED: NOREPINEPHRINE 4mg/D5W 250mL 4 MG/250 ML BAG IV ONE ×2 (00:07→04:09)
[2020-10-29 00:26] LABS: Blood Morphology Comment NOT SEEN (NOT SEEN); Platelet Estimate ADEQ
[2020-10-29 00:40] LABS: Albumin 2.4 g/dL (3.4-5.0); Bilirubin Total 2.8 mg/dL (0.2-1.0); Protein, Total 5.7 g/dL (6.4-8.2)
[2020-10-29 00:41] LABS: Potassium 6.8 mmol/L (3.5-5.1)
[2020-10-29] MEDS ORDERED: D50W 25 GM/50 ML SYRINGE IV PRN (00:53)
[2020-10-29] MEDS ORDERED: GLUCAGON 1 MG/VIAL IM PRN (00:53)
[2020-10-29] MEDS ORDERED: INSULIN -REGULAR HUMAN 50 UNIT/0.5 ML ML SQ SCH ×3 (01:00→07:30)
[2020-10-29] MEDS ORDERED: INSULIN -REGULAR HUMAN 50 UNIT/0.5 ML ML IV ONE (01:07)
[2020-10-29] MEDS ORDERED: INSULIN 70/30 100 UNITS/ML SQ ONE ×3 (01:08→04:46)
[2020-10-29] MEDS ORDERED: SODIUM CHLORIDE 0.9% 10ML INJ IV PRN (01:09)
[2020-10-29] MEDS ORDERED: PANTOPRAZOLE 40 MG INJ IVP ONE (01:09)
[2020-10-29] MEDS ORDERED: D50W 25 GM/50 ML SYRINGE IV ONE (01:10)
[2020-10-29] MEDS ORDERED: D5W 1,000 ML with NA BICARB 8.4% 50 MEQ IV SCH ×2 (01:12)
[2020-10-29] MEDS ORDERED: INSULIN -REGULAR HUMAN 50 UNIT/0.5 ML ML ONE ×4 (01:35→10:03)
[2020-10-29] MEDS ORDERED: PANTOPRAZOLE 40 MG INJ ONE (01:35)
[2020-10-29] MEDS ORDERED: NA CHLORIDE 0.9% 100 ML ONE (01:36)
[2020-10-29] MEDS ORDERED: D50W 50 ML IV ONE (01:36)
[2020-10-29] MEDS ORDERED: SODIUM BICARB 50 MEQ/50ML VIAL ONE (01:36)
[2020-10-29] MEDS ORDERED: D5 0.9 NS 1,000 ML IV ONE (01:36)
[2020-10-29] MEDS ORDERED: NA BICARB IV SCH ×2 (02:00)
[2020-10-29] MEDS ORDERED: PANTOPRAZOLE INJ 80 MG in NA CHLORIDE 0.9% 250 ML IV SCH (02:00)
[2020-10-29] MEDS ORDERED: D5 NS IV SCH ×2 (02:00)
[2020-10-29] MEDS ORDERED: propofoL 1,000 MG/100 ML VIAL IV ONE ×4 (02:06→12:18)
[2020-10-29 02:58] LABS: Absolute Lymphocytes (CBC) 0.4 K/uL (0.7-4.9); Basophils % 0.4 % (0-1.3); Hematocrit 44.4 % (39.6-49.0); Lymphocytes % 1.3 % (15.3-44.8); MPV 7.4 fL (7.6-11.3); RBC Red Blood Cell Count 5.01 M/uL (4.33-5.43)
[2020-10-29 03:27] LABS: Albumin 2.1 g/dL (3.4-5.0); Bilirubin Direct 2.1 mg/dL (0-0.2); Bilirubin Total 2.6 mg/dL (0.2-1.0); C-Reactive Protein 96.7 mg/L (<3.00); Ferritin 35058.7 ng/mL (26-388); Protein, Total 5.1 g/dL (6.4-8.2)
[2020-10-29 03:31] LABS: Magnesium 3.6 mg/dL (1.8-2.4)
[2020-10-29 03:32] LABS: Potassium 6.2 mmol/L (3.5-5.1)
[2020-10-29] MEDS ORDERED: CALCIUM GLUCONATE 1 GM IVPB 1 GM/50 ML BAG IV ONE (04:46)
[2020-10-29 06:15] LABS: Blood O2 Saturation 92.1 % (92-98.5)
[2020-10-29] MEDS: METHYLPRED NA SUC 1,000 MG in NA CHLORIDE 0.9% 100 ML IV SCH (07:00)
[2020-10-29] MEDS: NOREPINEPHRINE 4 MG in D5W 250 ML IV PRN (07:40)
[2020-10-29] MEDS: THIAMINE HCL 100 MG TABLET PO SCH (08:32)
[2020-10-29] MEDS: ZINC SULFATE 220 MG CAP PO SCH (08:32)
[2020-10-29] MEDS: VITAMIN D 1000 UNIT TAB PO SCH (08:32)
[2020-10-29] MEDS ORDERED: HYDROMORPHONE HCL 2 MG/ML inj IV PRN (08:45)
[2020-10-29] MEDS: CISATRACURIUM BESYLATE 100 MG in NA CHLORIDE 0.9% 200 ML IV PRN (08:45)
[2020-10-29] MEDS: ASCORBIC ACID 500 MG TABLET PO SCH (09:00)
[2020-10-29] MEDS: IVERMECTIN 3 MG TABLET PO SCH (09:00)
[2020-10-29] MEDS ORDERED: INSULIN GLARGINE 100 UNITS/ML SQ ONE ×2 (09:57→10:02)
[2020-10-29] MEDS ORDERED: SOD POLYSTYREN SUL 15 GM/60 ML UCUP PO ONE (10:01)
[2020-10-29] MEDS ORDERED: VANCOMYCIN/NS 1 gm 1 GM/250 ML BAG IVPB SCH (10:15)
[2020-10-29] MEDS ORDERED: VANCOMYCIN 2.5 GM in NA CHLORIDE 0.9% 500 ML IVPB ONE (10:30)
[2020-10-29] MEDS ORDERED: Meropenem 500 MG/100 ML BAG IV SCH (10:30)
[2020-10-29] MEDS ORDERED: ALBUMIN HUM 5% 500 ML IV SCH (11:00)
[2020-10-29] MEDS ORDERED: INSULIN -REGULAR HUMAN 100 UNIT in NA CHLORIDE 0.9% 100 ML IV SCH (11:00)
[2020-10-29] MEDS ORDERED: WATER FOR INJ,STERILE 1,000 ML with NA BICARB 8.4% 150 MEQ IV SCH ×2 (11:00)
--- NOTE | 2020-10-29 11:11 | RAD REPORT ---
EXAM DESCRIPTION: RAD - Abdomen 1 View (KUB) - 10/29/2020 11:03 am CLINICAL HISTORY: abd distention COMPARISON: Chest Single View dated 10/28/2020 FINDINGS: Bilateral lung parenchymal opacification is present with air bronchogram formation. NG/OG tube is in place. Tip is in the distal stomach. Stomach is decompressed. Bowel gas pattern is nonspecific. There is general hazy opacification across the abdomen. Ascites can not be excluded. No free air or pneumatosis. No suspicious calcifications. No significant bony findings IMPRESSION: Bilateral lower lung field pneumonia pattern consistent with a COVID-19 pneumonia. NG/OG tube is in good position with the tip in the distal portion of a decompressed stomach. Bowel gas pattern is nonspecific. No free air, obstruction or pneumatosis. Ascites cannot be excluded .
[2020-10-29 11:41] VITALS: TEMP 97.4
[2020-10-29 12:05] VITALS: BP 108/43
--- NOTE | 2020-10-29 12:33 | ER ---
Nurse's Notes [facility] Name: Wero Bell Age: 45 yrs Sex: Male : 1975 Arrival Date: 10/26/2020 Time: 19:30 Bed 4 Private MD: Diagnosis: Respiratory distress. Hypoxia. Covid pneumonia Presentation: 10/26 19:30 Chief complaint: EMS states: pt was seen here a couple days ago, went home on O2, COVID iw +, sats have been in 60's at home, placed on NRB by EMS, up to 80%. Coronavirus screen: Client presents with at least one sign or symptom that may indicate coronavirus-19. Standard/surgical mask placed on the client. Provider contacted for isolation considerations. Client reports previous positive COVID test result. Ebola Screen: Patient negative for fever greater than or equal to 101.5 degrees Fahrenheit, and additional compatible Ebola Virus Disease symptoms Patient denies exposure to infectious person. Patient denies travel to an Ebola-affected area in the 21 days before illness onset. No symptoms or risks identified at this time. Initial Sepsis Screen: Does the patient meet any 2 criteria? RR > 20 per min. Does the patient have a suspected source of infection? Yes:. Risk Assessment: Do you want to hurt yourself or someone else? Patient reports no desire to harm self or others. Onset of symptoms was October 26, 2020. 19:30 Method Of Arrival: EMS: [facility] iw 19:52 Acuity: SORAAY 2 iw Historical: - Allergies: 20:01 Aspirin; iw - Home Meds: 20:06 lisinopril 40 mg Oral tab 1 tab twice a day [Active]; hydrochlorothiazide 25 mg Oral iw tab 1 tab once daily [Active]; amlodipine 10 mg tab 1 tab once daily [Active]; - PMHx: 20:01 Hypertensive disorder; Sleep Apnea; iw - PSHx: 20:01 None; iw - Immunization history:: Client reports having NOT received the Covid vaccine. - Social history:: Smoking status: Patient denies any tobacco usage or history of. Screenin:00 Abuse screen: Denies threats or abuse. Denies injuries from another. Nutritional iw screening: No deficits noted. Tuberculosis screening: No symptoms or risk factors identified. Fall Risk IV access (20 points). Assessment: 20:03 Reassessment: pt up to 91% on NRB at 15 L. iw 10/27 11:28 Reassessment: Spoke to the pt. via telephone, she would like for the pt to rb3 received the antibody infusion. She would like for Dr. De Souza to call when he is available to discuss this matter. NORMAN Palacios notified. 10/29 05:36 Reassessment: [id number]. ea Vital Signs: 10/26 19:51 Pulse Ox 94% on Non-rebreather mask; Weight 99.79 kg; iw 19:58 BP 142 / 59; Pulse 91; Resp 24 S; Temp 98.9; Pulse Ox 88% on Non-rebreather mask; iw Weight 102.06 kg; Height 5 ft. 10 in. (177.80 cm); Pain 0/10; 19:58 Body Mass Index 32.28 (102.06 kg, 177.80 cm) iw ED Course: 19:30 Patient arrived in ED. la1 19:30 Inserted saline lock: 20 gauge in right antecubital area, using aseptic technique. iw Blood collected. 19:31 Yaniv Troy MD is Attending Physician. pkl 19:37 Eleuterio Barton DO is Hospitalizing Provider. pkl 19:51 Shadia Peng, NORMAN is Primary Nurse. iw 19:52 Triage completed. iw 20:03 Patient has correct armband on for positive identification. Bed in low position. Call iw light in reach. 20:32 Chest Single View XRAY In Process Unspecified. EDMS 10/27 07:06 Primary Nurse role handed off by Shadia Peng RN bp 07:06 Philip uFlton, RN is Primary Nurse. bp 10/28 07:54 Primary Nurse role handed off by Philip Fulton, NORMAN bd 22:18 Jane Coats, RN is Primary Nurse. bs2 Administered Medications: 10/26 19:51 Drug: SOLU-Medrol (methylPrednisoLONE) 125 mg Route: IVP; Site: right antecubital; iw 20:00 Drug: Lovenox (enoxaparin) 1 mg/kg Route: Sub-Q; Site: left lower abdomen; iw Outcome: 19:39 Decision to Hospitalize by Provider. pkl 10/29 12:32 Patient left the ED. hb Signatures: Dispatcher [employer] EDMS Lilia Holliday Pin, MD MD pkl Shadia Peng, RN RN iw Elmer Graves, RETIREMENT PLAN COUNSELOR-C RETIREMENT PLAN COUNSELOR-Cla1 Charla Mclaughlin, RN RN hb Angelina Medellin RN Philip Reyes ea RN Vanessa Ross, RN RN rb3 Jane Coats RN RN bs2 Corrections: (The following items were deleted from the chart) 10/26 19:52 19:51 Pulse Ox 94% Non-rebreather mask; [facility]
--- NOTE | 2020-10-29 13:17 | ECHO ---
HEIGHT: 5 ft 10 in WEIGHT: 224 lb 0 oz DATE OF STUDY: 10/29/[address]: Timi De Souza MD 2-DIMENSIONAL: YES M.MODE: YES DOPPLER: YES COLOR FLOW: YES TDS: PORTABLE: DEFINITY: BUBBLE STUDY: DIAGNOSIS: RULE OUT PULMONARY EMBOLISM, COVID CARDIAC HISTORY: CATHERIZATION: NO SURGERY: NO PROSTHETIC VALVE: NO PACEMAKER: NO MEASUREMENTS (cm) DIASTOLIC (NORMALS) SYSTOLIC (NORMALS) IVSd 1.3 (0.6-1.2) LA Diam 2.5 (1.9-4.0) LVEF 86% LVIDd 3.4 (3.5-5.7) LVIDs 1.6 (2.0-3.5) %FS 54% LVPWd 1.3 (0.6-1.2) Ao Diam 2.9 (2.0-3.7) 2 DIMENSIONAL ASSESSMENT: RIGHT ATRIUM: NORMAL LEFT ATRIUM: NORMAL RIGHT VENTRICLE: NORMAL LEFT VENTRICLE: NORMAL TRICUSPID VALVE: NORMAL MITRAL VALVE: NORMAL PULMONIC VALVE: NORMAL AORTIC VALVE: NORMAL PERICARDIAL EFFUSION: NONE AORTIC ROOT: NORMAL LEFT VENTRICULAR WALL MOTION: NORMAL DOPPLER/COLOR FLOW: NORMAL COMMENTS: NORMAL 2-DIMENSIONAL ECHOCARDIOGRAM WITH DOPPLER. NO EFFUSION. NO PULMONARY HYPERTENSION. TECHNOLOGIST: NERY DOUGLAS
--- NOTE | 2020-10-29 17:05 | CON ---
Date of Consultation: 10/29/2020 Reason For Consultation: Elevated BUN and creatinine, hyperkalemia, acidosis. History Of Present Illness: All the information has been obtained from the record as the patient is intubated, sedated. This is a 45-year-old gentleman with significant past medical history of hyperte nsion, the patient was diagnosed with COVID few days back, was symptomatic, then started having hypox emia, visited the ER couple of times, treated and discharged. At this time, the patient came complmilan huggins from shortness of breath, found to have hypoxemia down to 60%. For that reason, the patient was admitted. The patient was admitted to the hospital on the . Upon admission, creatinine was 1.6, gradually creatinine trended up on the at 3.3 and today is 3.6. For that reason, we have been c onsulted. The patient started developing severe hyperkalemia with fluid resuscitation. The patient is still oliguric. Reviewing the record for the patient back on the , creatinine 1.3. At that ti me, his GFR was 56. There is no exposure for any contrast. The patient in the last 24 hours has uri ne output of only 150 mL. Past Medical History: Includes hypertension. Allergies: NO KNOWN DRUG ALLERGIES. Family History: None obtainable. Social History: None obtainable. Review of Systems: None obtainable. Physical Examination: Vital Signs: When I saw the patient; the patient on 2 pressors. Blood pressure 121/60, pulse of 92. Chest: Crackles bilateral. Heart: S1, S2. Systolic murmur. Positive carotid bruit. Neuro: The patient is sedated. Abdomen: Soft, distended. No guarding or rebound. Extremities: No edema. Laboratory Data: Sodium 138, potassium 6.2, bicarb 22, BUN 68, creatinine 3.6, GFR of 18, glucose 61 2, calcium 6.4, magnesium 3.6. Ferritin 35,000. LFT elevated. Albumin 2.1. TSH 0.06. WBC 31, H a nd H 13.9/44.4, platelet 103. Chest x-ray, cardiomegaly with interstitial and over volume. Current Medications: The patient on include Levophed, lorazepam, vancomycin, midazolam, pantoprazole , normal saline, tocilizumab. Assessment And Plan: 1.Acute kidney injury secondary to septic shock, poor perfusion, ATN, oliguric/anuric, complicated w ith hyperkalemia and acidosis. We will proceed to obtain consent for dialysis. We will proceed with sled as blood pressure marginal and there is difficulty to transfer the patient as the patient is un stable and we will follow up. We will send for renal ultrasound to rule out any obstruction. 2.Hyperkalemia, multifactorial, secondary to renal failure and acidosis and diabetic ketoacidosis. We will start the patient on insulin drip, discontinue normal saline, start the patient on bicarb dri p, and we will dialyze the patient on low-potassium bath. 3.Acidosis secondary to diabetic ketoacidosis and renal failure. Start the patient on bicarb drip, going to be corrected on dialysis. 4.Diabetic ketoacidosis secondary to sepsis. Start the patient on insulin drip. Given the hyperkal emia, we will start on bicarb drip. 5.Hypocalcemia, corrected calcium 8. We will send for PTH and vitamin D and we will follow up. The patient is going to be dialyzed on high calcium bath. 6.Acidosis, high anion gap metabolic acidosis secondary to renal failure and diabetic ketoacidosis a s above. 7.Multiorgan failure, cardiac sepsis, respiratory failure and liver failure. We will continue suppo rt. Follow up with ICU. Time spent discussing the patient with other staff, examining the patient, [id number], placing orde rs, discussing the patient with other steamfitter including nursing and other subspecialty including Critical Care, Cardiology and ID and hospitalist 75 minutes. DON Voice ID: [id number] Report ID: [id number]
--- NOTE | 2020-10-29 19:30 | P.DS ---
Admission Date: 10/26/20 Discharge Date: 10/29/20 Disposition: [facility] TO [facility]ARE [facility]AC[facility] Discharge Condition: CRITICAL Reason for Admission: COVID-19 pneumonia - Problems (1) Acute respiratory failure with hypoxia Status: Acute (2) Sepsis Status: Acute (3) Septic shock Status: Acute (4) GI bleed Status: Acute (5) DIC (disseminated intravascular coagulation) Status: Acute (6) Respiratory acidosis Status: Acute (7) Diabetes mellitus with hyperglycemia Status: Acute Brief History of Present Illness: 45-year-old male with history of hypertension presents the emergency department for shortness of breath. Patient tested positive for COVID-19 around October 17 with increasing shortness of breath since then. Patient has been on home oxygen prescribed by his doctor for the last few days, but he progressively got worse with prior ED visit. Patient apparently declined admission and went home. His condition got worse, EMS was called who found him with oxygen saturation of 60% on oxygen by nasal canula. Patient was placed on non- rebreather mask and brought to the ED. He was placed on BiPAP immediately and a dmitted for further management. Hospital Course: Patient admitted to the ICU. His respiratory condition got worse and was intubated for mechanical ventilation the next day. Patient developed hypotension and needed two vasopressors. He remained in respiratory acidosis despite mechanical ventilation. D-dimer and became markedly elevated. Patient was treated with heparin drip briefly but this was continued due to GI bleed. Blood work also suggested DIC with markedly elevated D-dimer, elevated PT, INR and PTT, and decreasing platelet. Patient with poor prognosis. Transfer to [facility] initiated. Patient accepted for transfer and air lifted to [facility]. updated about the transfer. Vital Signs/Physical Exam: Temp Pulse Resp BP Pulse Ox 97.4 F 94 H 24 H 108/43 L 95 10/29/20 11:30 10/29/20 12:00 10/29/20 11:30 10/29/20 11:45 10/29/20 12:00 General: Other (Sedated) HEENT: Other (Intubated) Cardiovascular: Normal S1 S2 Gastrointestinal: Soft and benign, Distended Integumentary: No rashes Neurological: Other (Sedated.) Laboratory Data at Discharge: WBC 31.00 K/uL (4.3-10.9) H* 10/29/20 02:30 Hgb 13.9 g/dL (13.6-17.9) 10/29/20 02:30 Hct 44.4 % (39.6-49.0) 10/29/20 02:30 Plt Count 103 K/uL (152-406) L D 10/29/20 02:30 PT 22.1 SECONDS (9.5-12.5) H 10/28/20 20:55 INR 1.91 10/28/20 20:55 APTT 39.7 SECONDS (24.3-36.9) H 10/29/20 01:58 Sodium 138 mmol/L (136-145) 10/29/20 02:30 Potassium 6.2 mmol/L (3.5-5.1) H* 10/29/20 02:30 Potassium Cancelled 10/29/20 02:30 BUN 68 mg/dL (7-18) H 10/29/20 02:30 Creatinine 3.68 mg/dL (0.55-1.3) H 10/29/20 02:30 Glucose 598 mg/dL (74-106) H* 10/29/20 05:50 Magnesium 3.6 mg/dL (1.8-2.4) H* D 10/29/20 02:30 Total Bilirubin 2.6 mg/dL (0.2-1.0) H 10/29/20 02:30 AST 2042 U/L (15-37) H* D 10/29/20 02:30 ALT 2054 U/L (12-78) H* D 10/29/20 02:30 Alkaline Phosphatase 119 U/L (45-117) H 10/29/20 02:30 Triglycerides 236 mg/dL (<150) H 10/27/20 05:08 Cholesterol 162 mg/dL (<200) 10/27/20 05:08 HDL Cholesterol 28 mg/dL (40-60) L 10/27/20 05:08 Cholesterol/HDL Ratio 5.79 10/27/20 05:08 Home Medications: Amlodipine [Norvasc] 10 mg PO DAILY 10/26/20 Lisinopril [Zestril] 1 tab PO BID 10/26/20 hydroCHLOROthiazide [Hydrochlorothiazide] 25 mg PO DAILY 10/26/20 Followup: Unknown,U [Primary Care Provider] -
--- NOTE | 2020-10-30 13:02 | EKG ---
Test Date: 2020-10-29 Test Time: 04:12:59 Linoleum Printer: LANE MEASUREMENT RESULTS: Intervals: Rate: 142 NM: 184 QRSD: 94 QT: 240 QTc: 369 Reading: P: 52 NM: 184 QRS: 152 T: 47 INTERPRETIVE STATEMENTS: Sinus rhythm with premature supraventricular complexes and premature ventricular complexes or fusion complexes Right axis deviation Incomplete right bundle branch block Possible Right ventricular hypertrophy Nonspecific T wave abnormality Abnormal ECG Compared to ECG 10/26/2020 19:44:31 Atrial premature complex(es) now present Fusion complex(es) now present Ventricular premature complex(es) now present Right-axis deviation now present Incomplete right bundle-branch block now present T-wave abnormality now present Electronically Signed On 10-30-20 12:59:31 CDT by Angus Abreu
--- NOTE | 2020-10-30 13:03 | EKG ---
Test Date: 2020-10-28 Test Time: 13:49:35 Appraiser Auditor: MEASUREMENT RESULTS: Intervals: Rate: 119 OR: 176 QRSD: 96 QT: 296 QTc: 416 Manning: P: 54 OR: 176 QRS: 129 T: 26 INTERPRETIVE STATEMENTS: Sinus tachycardia Possible Left atrial enlargement Right axis deviation Incomplete right bundle branch block Possible Right ventricular hypertrophy Abnormal ECG Compared to ECG 10/26/2020 19:44:31 Right-axis deviation now present Incomplete right bundle-branch block now present Sinus rhythm no longer present Electronically Signed On 10-30-20 12:59:34 CDT by Angus Abreu
== END 2020-10-29 12:33 | disposition short-term general hospital (02) | DRG 871 ==
LOC: ER 19:27 → ERHOLD 20:38
PROVIDERS: ADMIT Hospitalist; ATTEND Internal Medicine
PROC: 5A09457 Assistance with Respiratory Ventilation, 24-96 Consecutive Hours, Continuous Positive Airway Pressure (ICD-10-PCS; 2020-10-26)
PROC: XW033E5 Introduction of Remdesivir Anti-infective into Peripheral Vein, Percutaneous Approach, New Technology Group 5 (ICD-10-PCS; 2020-10-27)
PROC: 5A1935Z Respiratory Ventilation, Less than 24 Consecutive Hours (ICD-10-PCS; principal; 2020-10-28)
PROC: 0BH17EZ Insertion of Endotracheal Airway into Trachea, Via Natural or Artificial Opening (ICD-10-PCS; 2020-10-28)
DX: A41.89 Other specified sepsis (principal); E11.10 Type 2 diabetes mellitus with ketoacidosis without coma; U07.1 COVID-19; J12.82 Pneumonia due to coronavirus disease 2019; J96.01 Acute respiratory failure with hypoxia; R65.21 Severe sepsis with septic shock; N17.0 Acute kidney failure with tubular necrosis; D65 Disseminated intravascular coagulation [defibrination syndrome]; E83.51 Hypocalcemia; K92.2 Gastrointestinal hemorrhage, unspecified; F41.9 Anxiety disorder, unspecified; I10 Essential (primary) hypertension; E87.5 Hyperkalemia; Z79.899 Other long term (current) drug therapy
CPT/HCPCS: 36415; 71045; 74018; 80053; 80061; 81003; 82248; 82271; 82728; 82805; 82947; 83735; 83986; 84145; 84439; 84443; 85025; 85379; 85384; 85610; 85730; 86140; 93005; 93306; 94002; 94003; 94660; 94760; 96372; 96374; 99284; C9113; J0330; J0610; J1644; J1650; J1815; J2185; J2250; J2270; J2370; J2405; J2704; J2920; J2930; J3010; J3262; J3370; J7030; J7040; J7042; J7050; J7060; P9045; U0003